=== PATIENT | female | born 1980 ===

== ENCOUNTER 2018-03-31 18:27 | Emergency (ER) | payer MEDICAID ==
[2018-03-31] MEDS ORDERED: Sodium Chloride 0.9% 1,000 ML IV ONE (20:17)
[2018-03-31 20:22] LABS: BASO # 0.1 K/uL (0.0-0.2); BASO % 0.6 % (0.0-2.0); EOS # 0.1 K/uL (0.0-0.7); EOS % 0.8 % (0.0-4.0); HEMOGLOBIN 12.9 g/dL (11.0-16.0); LYMPH # 3.3 K/uL (1.0-4.3); LYMPH % 22.7 % (20.0-40.0); MEAN CELL VOLUME 84.7 fL (81.0-99.0); MEAN CORPUSCULAR HEMOGLOBIN 28.8 pg (27.0-31.0); MEAN PLATELET VOLUME 7.5 fL (7.2-11.7); MONO # 1.5 K/uL (0.0-0.8); MONO % 10.2 % (0.0-10.0); NEUT # 9.4 K/uL (1.8-7.0); NEUT % 65.7 % (50.0-75.0); RBC 4.47 Mil/uL (3.80-5.20); RED CELL DISTRIBUTION WIDTH 13.7 % (11.5-14.5); WHITE BLOOD COUNT 14.4 K/uL (4.8-10.8)
[2018-03-31 20:34] LABS: URINE BILIRUBIN NEGATIVE (NEGATIVE); URINE BLOOD NEGATIVE (NEGATIVE); URINE CLARITY Clear (Clear); URINE COLOR Yellow (YELLOW); URINE GLUCOSE (UA) NORMAL (Normal); URINE LEUKOCYTE ESTERASE NEG Leu/uL (Negative); URINE PROTEIN NEGATIVE (NEGATIVE); URINE UROBILINOGEN NORMAL mg/dL (0.2-1.0)
[2018-03-31 20:40] LABS: BLOOD UREA NITROGEN 7 mg/dL (7-17); CALCIUM 9.2 mg/dl (8.6-10.4); GFR NON-AFRICAN AMERICAN > 60
--- NOTE | 2018-03-31 20:56 | C.PDOC ---
History Of Present Illness 37 y/o female, , presents to the ER complaining of suprapubic and left flank pain which has been present for the past 3 days. Patient states that the pain is constant. Patient reports that she took Tylenol with mild relief. She notes that she is undergoing care. Patient denies having nausea, vomiting, dysuria, hematuria, and vaginal bleeding. Time Seen by Provider: 03/31/18 19:49 Chief Complaint (Nursing): Abdominal Pain History Per: Patient History/Exam Limitations: no limitations Onset/Duration Of Symptoms: Days Current Symptoms Are (Timing): Still Present Severity: Moderate Past Medical History Reviewed: Historical Data, Nursing Documentation, Vital Signs Vital Signs: Last Vital Signs Temp 97.6 F 03/31/18 18:32 Pulse 84 03/31/18 18:32 Resp 16 03/31/18 18:32 BP 122/70 03/31/18 18:32 Pulse Ox 100 03/31/18 18:32 - Medical History PMH: No Chronic Diseases Surgical History: No Surg Hx Family History: States: No Known Family Hx - Social History Hx Alcohol Use: No Hx Substance Use: No - Immunization History Hx Tetanus Toxoid Vaccination: No Hx Pneumococcal Vaccination: No Review Of Systems Except As Marked, All Systems Reviewed And Found Negative. Constitutional: Negative for: Fever, Chills Gastrointestinal: Positive for: Abdominal Pain. Negative for: Nausea, Vomiting Genitourinary: Negative for: Dysuria, Hematuria, Vaginal Bleeding Physical Exam - Physical Exam Appears: Well, Non-toxic, No Acute Distress Skin: Normal Color, Warm, Dry Eye(s): bilateral: Normal Inspection Oral Mucosa: Moist Neck: Supple Chest: Symmetrical Cardiovascular: Rhythm Regular Respiratory: Normal Breath Sounds, No Rales, No Rhonchi, No Wheezing Gastrointestinal/Abdominal: Bowel Sounds, Soft, Tenderness (suprapubic mild TTP), No Guarding, No Rebound Back: Paraspinal Tenderness (left lumbar ) Neurological/Psych: Oriented x3, Normal Speech ED Course And Treatment - Laboratory Results Result Diagrams: 03/31/18 20:19 03/31/18 20:19 O2 Sat by Pulse Oximetry: 100 (RA) Pulse Ox Interpretation: Normal - CT Scan/US pelvic US Other Rad Studies (CT/US): Read By Radiologist, Radiology Report Reviewed CT/US Interpretation: Name:LOLIS ARANGO I Exam Date:Mar 31, 2018 9:55:19 PM EST. Modality Type:SD\US\SR. Description:US - RENAL. Gender:F Laterality:Bilateral. :80 Referring Physician:HENRY IGNACIO MD. EXAM: US Retroperitoneum, Renal. CLINICAL HISTORY: Left flank pain , r/o stone. TECHNIQUE: Real-time ultrasound of the retroperitoneum with image documentation. COMPARISON: None provided. FINDINGS: RIGHT KIDNEY: Unremarkable. 10.2 cm. Normal in size and contour. No renal mass or calculus. No hydronephrosis. LEFT KIDNEY: Unremarkable. 10.2 cm. Normal in size and contour. No renal mass or calculus. No hydronephrosis. BLADDER: Unremarkable as visualized. MISCELLANEOUS: No other significant abnormality evident. IMPRESSION: No acute abnormality evident. No hydronephrosis. . Electronically signed on Mar 31, 2018 10:40:29 PM EST by: Adarsh Michel M.D., JALEEL Certified By ABR & CBCCT. Fellowship Trained MRI and CT Specialist. renal US Other Rad Studies (CT/US): Read By Radiologist, Radiology Report Reviewed CT/US Interpretation: Name:CONCHITA DANIELLE Exam Date:Mar 31, 2018 10:06:25 PM EST. Modality Type:SD\US\SR. Accessio n#[id number] Description:US - OB WITH IMAGE DOC LIMITED (HEART BEAT PLACENTAL LOC POS AMNIOTIC FLUID VOL). Gender:F Laterality:Not applicable. :80 Referring Physician:HENRY IGNACIO MD. Procedure. OB Ultrasound. History. Pelvic pain. . Comparison. None available. Findings. Uterus. Number: 1. Position: Cephalic. Heart Rate: 140.70 beats per minute. Placenta: Posterior. 2.45 cm clear from Os. Cervix: 3.44 cm. . The following measurements were obtained: BPD 3.68 cm, 17 weeks 2 days. HC 13.77 cm, 17 weeks 1 day. AC 11.60 cm, 17 weeks 3 days. FL 2.31 cm, 17 weeks 0 days. . Estimated ultrasound gestational age 17 weeks, 2 days. Other Findings. None. Impression. Limited study. Single live intrauterine gestation - 17 weeks, 2 days. heart rate is 140.70 beats per minute. Placenta is posterior and is 2.45 cm clear from Os. . Electronically signed on Mar 31, 2018 11:11:39 PM EST by: Adarsh Michel M.D., MBA Certified By ABR & CBCCT. Fellowship Trained MRI and CT Specialist. Progress Note: Labs, UA, US- OB Preg. and US-Renal ordered. Patient treated with IV Fluids and Tylenol PO. Disposition - Disposition Referrals: 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 CLERK DENTRO DE 1 SEMANA UTILICE TYLENOL CARLO SE NECESITA PARA EL DOLOR VUELVA A LA ANN DE EMERGENCIA SI JAHAIRA SNTOMAS SE HACEN PEOR Prescriptions: Acetaminophen [Tylenol 325mg tab] 650 mg PO Q6 PRN #30 tab PRN Reason: pain/fever Instructions: Symptoms Forms: [employer] (Bulgarian) Print Language: UZBEK - Clinical Impression Clinical Impression: Pelvic pain affecting - Scribe Statement The provider has reviewed the documentation as recorded by the Scribe Miguel Brown Provider Attestation: All medical record entries made by the Scribe were at my direction and personally dictated by me. I have reviewed the chart and agree that the record accurately reflects my personal performance of the history, physical exam, medical decision making, and the department course for this patient. I have also personally directed, reviewed, and agree with the discharge instructions and disposition.
[2018-03-31 21:00] LABS: ALB/GLOB RATIO 0.9 (1.0-2.1); ALBUMIN 3.7 g/dL (3.5-5.0); ALT/SGPT 57 U/L (9-52); AST/SGOT 66 U/L (14-36)
[2018-03-31 23:08] VITALS: O2SAT 100
[2018-03-31 23:55] VITALS: BP 102/64; PULSE 61; RESP 20; TEMP 98.3
--- NOTE | 2018-04-01 11:30 | US ---
Indication: Pelvic pain, Comparison: None available Technique: Real-time ultrasound was performed through the pelvis. Findings: There is a single living fetus in cephalic presentation. Posterior placenta. The placenta is not previa. There are no adnexal masses or cysts evident. Measurements and calculations: Fetus has a composite sonographic age of 17 weeks 2 days. This calculation is based on the biparietal diameter, head circumference, abdominal circumference, and femur length. Estimated heart rate 140.7 beats per min. Estimated weight 183.6 g. Impression: Single living fetus with a composite sonographic age of 17 weeks 2 days. Estimated heart rate 140.7 beats per min. The study was performed for the emergent evaluation of pain, and the whole anatomic survey of the fetus was not performed. This should be performed on an outpatient elective basis as clinically warranted. Preliminary impression was provided by [facility] [employer].
--- NOTE | 2018-04-01 11:32 | US ---
Date of service: 03/31/2018 PROCEDURE: Ultrasound of the Kidneys HISTORY: LEFT FLANK PAIN, R/O STONE COMPARISON: None available. TECHNIQUE: Sonogram of the kidneys. FINDINGS: RIGHT KIDNEY: Measures: 10.2 x 4.4 x 4.5 cm. No obstructing calculus, hydronephrosis, or renal cyst identified. LEFT KIDNEY: Measures: 10.2 x 5.1 x 4.9 cm. No obstructing calculus, hydronephrosis, or renal cyst identified. OTHER FINDINGS: None. IMPRESSION: Unremarkable study as above. Preliminary impression was provided by [employer].
== END 2018-03-31 23:55 | disposition home or self-care (01) ==
LOC: C.ER 18:27
DX: O26.892 Other specified pregnancy related conditions, second trimester (principal); R10.2 Pelvic and perineal pain; Z3A.17 17 weeks gestation of pregnancy
CPT/HCPCS: 76770; 76815; 80053; 81001; 84702; 85025; 96360; 99284; J7030